=== PATIENT | male | born 1975 | race Native Hawaiian/Other Pacific Islander ===

== ENCOUNTER 2019-09-05 10:29 | Outpatient (CLI) | payer OTHER | END 2019-09-05 22:40 | disposition home or self-care (01) | LOC: MRI 10:29 | DX: M54.5 Low back pain (principal); M54.17 Radiculopathy, lumbosacral region ==

== ENCOUNTER 2019-09-19 02:06 | Emergency (ER) | payer OTHER ==
[~2019-09-19] VITALS: Ht 167.6 cm; Wt 72.6 kg
[2019-09-19 04:36] VITALS: BP 152/100; TEMP 98.3
== END 2019-09-19 04:35 | disposition home or self-care (01) ==
LOC: ED 02:06
DX: K08.89 Other specified disorders of teeth and supporting structures (principal); J32.9 Chronic sinusitis, unspecified; F17.210 Nicotine dependence, cigarettes, uncomplicated
CPT/HCPCS: 96372; 99283; J0696; J2270; J2405

== ENCOUNTER 2019-11-11 10:14 | Outpatient (CLI) | payer OTHER | END 2019-11-11 19:30 | disposition home or self-care (01) | LOC: MRI 10:14 | DX: M54.12 Radiculopathy, cervical region (principal) ==

== ENCOUNTER 2019-12-25 10:53 | Outpatient (CLI) | payer OTHER | END 2019-12-25 19:13 | disposition home or self-care (01) | LOC: RAD 10:53 | DX: M54.12 Radiculopathy, cervical region (principal) ==

== ENCOUNTER 2019-12-31 10:07 | Outpatient (CLI) | payer OTHER | END 2019-12-31 22:55 | disposition home or self-care (01) | LOC: MRI 10:07 | DX: M54.12 Radiculopathy, cervical region (principal) ==

== ENCOUNTER 2023-01-31 19:20 | Emergency (ER) | payer OTHER ==
[~2023-01-31] VITALS: Ht 167.6 cm; Wt 72.6 kg
[2023-01-31 19:30] VITALS: BP 176/97; TEMP 97.2
== END 2023-01-31 20:40 | disposition home or self-care (01) ==
LOC: ED 19:20
DX: M54.12 Radiculopathy, cervical region (principal); F17.210 Nicotine dependence, cigarettes, uncomplicated; F12.90 Cannabis use, unspecified, uncomplicated
CPT/HCPCS: 96372; 99283; J1885; J2360

== ENCOUNTER 2023-03-20 10:03 | Outpatient (CLI) | payer OTHER | END 2023-03-20 19:21 | disposition home or self-care (01) | LOC: RAD 10:03 | PROVIDERS: ATTEND Physician Assistant | DX: M54.2 Cervicalgia (principal) ==

== ENCOUNTER 2023-04-12 11:18 | Outpatient (CLI) | payer OTHER | END 2023-04-12 21:50 | disposition home or self-care (01) | LOC: MRI 11:18 | PROVIDERS: ATTEND Physician Assistant | DX: M48.02 Spinal stenosis, cervical region (principal); G99.2 Myelopathy in diseases classified elsewhere | CPT/HCPCS: 36415; 82565; 84520; A9576 ==